=== PATIENT | male | born 1970 | race Caucasian/White ===

== ENCOUNTER 2023-07-20 11:26 | Emergency (ER) | payer BC, SELFPAY ==
[2023-07-20 11:27] VITALS: BP 154/98; PULSE 76; RESP 20; TEMP 36; O2SAT 98; BMI 28.5
--- NOTE | 2023-07-20 12:45 | CT_ITS ---
STUDY: CTA HEAD AND NECK WITH CONTRAST REASON FOR EXAM: Male, 52 years old. Two-week history of migraine headaches. RADIATION DOSAGE (If Supplied By Facility): CTDIvol = ( 26.30 ) mGy, DLP = ( 1670.72 ) mGycm TECHNIQUE: CT angiography was performed with a multi-detector CT scanner. Data acquisition was obtained from the skull base through the vertex following intravenous administration of IV 100mL [id number]-370. MIP images were reconstructed from the axial data set. Post-processing of the angiographic images was performed, with multiplanar reformation and 3D reconstruction. Individualized dose optimization techniques were used for this CT. COMPARISON: No relevant priors. FINDINGS: Normal bilateral petrous carotid arteries. Normal right cavernous carotid artery with a normal supraclinoid bifurcation. Normal left cavernous carotid artery with a normal supraclinoid bifurcation. Normal right A1 segments of the anterior cerebral artery. Normal left A1 segments of the anterior cerebral artery. Normal intact anterior communicating artery (ACOM). Normal bilateral A2 segments of the anterior cerebral arteries. Normal right M1 and M2 segments of the middle cerebral arteries, with a normal M1 bifurcation. Normal left M1 and M2 segments of the middle cerebral arteries, with a normal M1 bifurcation. Normal right posterior communicating artery (PCOM). Normal left posterior communicating artery (PCOM). Normal bilateral vertebral arteries. Normal basilar artery with a normal basilar bifurcation. The visualized bilateral superior cerebellar (SCA) arteries are normal. Normal bilateral P1, P2 and visualized P3 segments of the posterior cerebral arteries. There is no demonstrated aneurysm of the [place]. There is no demonstrated abnormality of the visualized brain. AORTIC ARCH: Normal visualized aortic arch. Normal origins of the brachiocephalic, left common carotid, and left subclavian arteries. RIGHT CAROTID ARTERIES: Normal right common carotid artery (CCA). Normal right common carotid bulb. Normal origin of the right internal carotid (ICA) artery without a hemodynamically significant stenosis. Normal visualized cervical portion of the right internal carotid artery. Normal origin of the right external carotid artery (ECA). LEFT CAROTID ARTERIES: Normal left common carotid artery (CCA). Normal left common carotid bulb. Minimal calcific plaque along the anterior aspect of the origin of the left internal carotid artery. Normal visualized cervical portion of the left internal carotid artery. Normal origin of the left external carotid artery (ECA). VERTEBRAL ARTERIES: Normal bilateral vertebral arteries. CT/CTA Head AND Neck W/ Contrast IMPRESSION: Normal CTA Head and neck with contrast. Electronically Signed: Esteban Donis MD at 13:55 EST ,
--- NOTE | 2023-07-20 12:53 | EDS_ITS ---
HPI History of Present Illness Chief Complaint: Headache Informant: patient and spouse/S.O. Narrative Narrative: 52-year-old male presenting to the emergency room with occipital headache. Patient states for the past 2 years he has had intermittent occipital headaches. He states typically wakes him up in the night has light sensitivity he takes Imitrex and gets better. He states that 4 or 5 times he is required the migraine cocktail at the emergency department. He states [address] he [address] a [address] of his head that did not show anything. He states 2 weeks ago he developed this headache in the Imitrex did not resolve the symptoms. He notes his occipital feels it is stemming mid cervical and up into the occipital region. He notes associated light sensitivity. He saw a nurse practitioner in his doctor's office who prescribed Fioricet and prednisone. He states this did not help. He did a virtual visit with his doctor who placed him on methocarbamol he states that this did not help. He states that when he moves his neck he feels a grinding popping like sensation. He notes pain is worse with flexion and with rotating to the right. He denies any arm or leg symptoms. No fever no rash. No speech difficulty. No ataxia/off-balance. He now notes a pain in the lower thoracic which is started in the past 2 weeks that is also worse with movement. No radicular symptoms. No bowel or bladder dysfunction. No known direct traumas. [facility] Medical History Migraine Home Medications oxycodone 10 mg tablet 10 mg PO TID PRN pain 3 days #12 tabs 07/20/23 [Rx Last Taken Unknown] sumatriptan succinate 50 mg tablet (Imitrex) See Rx Instructions PO .COMPLEX 07/20/23 [History Last Taken Unknown] Allergy/AdvReac Type Severity Reaction Status Date / Time No Known Allergies Allergy Verified 07/20/23 11:29 Social History Smoking Status: Current every day smoker tobacco type: cigarettes ROS ROS ED Constitutional Constitutional ED: Denies chills or weight loss Eyes Eyes: Reports other Details: Light sensitivity ; Denies blurry vision, change in vision or diplopia ENT ENT ED: Denies ear pain, rhinorrhea or sore throat Cardiovascular Cardiovascular: Denies chest pain, orthopnea, palpitations or racing heartbeat Respiratory/Chest Respiratory/Chest: Denies cough, dyspnea or orthopnea Gastrointestinal Gastrointestinal: Denies abdominal pain, diarrhea, nausea or vomiting Genitourinary Genitourinary ED: Denies dysuria, hematuria or urinary frequency Musculoskeletal Musculoskeletal: Reports back pain and neck pain; Denies arthralgias or myalgias Integumentary Denies abscess or rash Neurologic Neurologic: Reports headache(s); Denies weakness Psychiatric Psychiatric: Denies anxiety, depression, suicidal ideation or suicidal thoughts Endocrine Endocrinology: Denies polydipsia, polyphagia or polyuria Allergic/Immunologic Allergic/Immunologic ED: Denies mouth swelling, tongue swelling or urticaria EXAM Physical Exam Const Vital Signs: 07/20/23 11:27 07/20/23 15:09 Temperature 96.8 F L Temperature Source Temporal Pulse Rate 76 78 Respiratory Rate 20 H 16 Blood Pressure 154/98 H 124/71 H Blood Pressure Mean 116 88 Pulse Ox 98 100 Oxygen Delivery Method Room Air Positive well nourished and well developed General Appearance ED: well developed HEENT Reports normocephalic, head/scalp atraumatic and moist mucous membranes Eyes PERRL and EOMs intact bilaterally Neck no lymphadenopathy, supple, no meningeal signs and no JVD Resp normal respiratory effort and clear to auscultation bilaterally Cardio regular rate, regular rhythm and no murmurs GI normal to inspection, nondistended, normoactive bowel sounds and non-tender Palpation: soft Back/Spine no CVA tenderness and normal ROM Extremity normal to inspection General Extremety ED: Negative for edema General Extremity: Negative for edema Neuro oriented x3 and CN's II-XII intact bilaterally Sensorium / Orientation: alert Motor Exam: strength 5/5 throughout Psych mental status grossly normal Mood & Affect: Negative for depressed or tearful Skin no rashes or lesions noted and no wounds MDM MDM MDM Narrative Medical decision making narrative: Patient's white count 9.2 hemoglobin 16.7. Glucose 107. CTA head and neck demonstrates no aneurysm or mass skull lesions significant spinal stenosis obvious cause for the patient's pain. He received a dose of Toradol and some fluids as well as a dose of dexamethasone. At this point not sure that this is migrainous in nature though it could be. There is definitely a musculoskeletal component given the noises he makes with movement of his neck it is worse with flexion worse with rotation to the right. I do not think that this is infectious in etiology. Based on the CTA no aneurysm or dissection component. At this point already can write the patient pain medication. He has follow-up next week with his primary care doctor. We talked about scheduled anti- inflammatories. We talked about neurology follow-up. At this point patient will be discharged instructions to return for any worsening or concerning features. History & Record Review Discussion w/independent historian: Patient and Significant other Lab Data Attestation: I reviewed the patient's lab results. Labs: Laboratory Results - last 24 hr 07/20/23 13:15 WBC 9.2 RBC 5.31 Hgb 16.7 H Hct 49.6 MCV 93.4 MCH 31.5 MCHC 33.7 RDW Std Deviation 41.8 RDW Coeff of [place] 12.1 Plt Count 274 MPV 8.8 Immature Gran % (Auto) 0.400 Neut % (Auto) 57.0 Lymph % (Auto) 28.7 Nelson % (Auto) 9.7 Eos % (Auto) 3.7 Baso % (Auto) 0.5 Absolute Neuts (auto) 5.2 Absolute Lymphs (auto) 2.63 Nucleated RBC % 0 Sodium 137 Potassium 3.9 Chloride 103 Carbon Dioxide 30.0 Anion Gap 4 L BUN 18 Creatinine 0.96 Estim Creat Clear Calc 109.01 Est GFR (MDRD) Af Amer 106 Est GFR (MDRD) Non-Af 88 BUN/Creatinine Ratio 18.8 Glucose 107 H Calcium 10.3 H Radiography Diagnostic Testing: Clinical Impression(s) from Imaging Studies Head/Neck CTA 07/20/23 12:45 IMPRESSION: Normal CTA Head and neck with contrast. Electronically Signed: Esteban Donis MD at 13:55 EST , Discharge Plan Triage Chief Complaint: Headache ED Provider: Elmer Acuña Dx/Rx/DC Orders Clinical Impression: Acute neck pain, Headache Instructions: ED Headache Unspecified Prescriptions: New oxycodone 10 mg tablet 10 mg PO TID PRN (Reason: pain) 3 Days Qty: 12 0RF No Action sumatriptan succinate [Imitrex] 50 mg tablet See Rx Instructions .ROUTE .COMPLEX Rx Instructions: take 1 tab at onset of headache; if no relief may repeat 1 tab after at least 2 hrs; max = 4 tabs/24 hr Primary Care Provider: Girish Lanier Referrals: Girish Lanier DO [Primary Care Provider] - Keep Charlie appointment Activity Restrictions/Additional Instructions: As discussed there are several neurology groups up in [place]. You can call [facility] or [facility] and be connected to their neurology groups. There is also the neurology group below. [place] [id number], [address] [place], [place] [address] Disposition Disposition: Home, Self Care Discharge Date/Time: 07/20/23 15:24
--- OUTSIDE RECORDS SUMMARY | 2023-07-20 12:57 | XMS RPT_ITS | CCD ---
Author Name Unknown Address [address] [place] [address] Organization [facility] Care Team Providers Care Internet Assessor Name Role Phone NHUNG BE Primary Care Physician DR RONEL CORBETT DO Primary Care Physician [phone] DR RONEL CORBETT DO Primary Care Unavailable DR JUAN TRISTAN DO Attending Unavailable Medications Current Medications Medication Drug Class(es) Dates Sig (Normalized) Sig (Original) acetaminophen 325 mg / butalbital 50 mg / caffeine 40 mg oral tablet (2 sources) Barbiturate, Central Nervous System Stimulant, Methylxanthine Start: 04-09-2021 End: 04-12-2021 take 1 tablet by mouth every four hours as needed APAP/butalbital/ caffeine 325-50-40 mg oral tablet (Fioricet) Dose = 1 tab(s), Oral, q4h, PRN as needed, X 3 day(s), # 18 tab(s), 0 Refill(s) Start Date: 04/09/21 Stop Date: 04/12/21 Status: Ordered Completed/Discontinued Medications Medication Drug Class(es) Dates Sig (Normalized) Sig (Original) meloxicam 15 mg oral tablet (2 sources) Nonsteroidal Anti-inflammatory Drug Start: 06-03-2021 End: 07-03-2021 meloxicam 15 mg oral tablet Dose : 15 mg = 1 tab(s), Oral, qDay, PRN Pain, Take with food and plenty of fluids. Do not take any other NSAIDs while on this medication., # 30 tab(s), 0 Refill(s), Pharmacy: [facility]/pharmacy #[id number], 187, cm, 06/03/21 8:46:00 EST, Height, kg, 06/03/21 8:4... Start Date: 06/03/21 Stop Date: 07/03/21 Status: Ordered SUMAtriptan 100 mg oral tablet (5 sources) Serotonin-1b and Serotonin-1d Receptor Agonist Start: 12-15-2021 End: 04-26-2022 take 1 tablet by mouth every twenty-four hours SUMAtriptan 100 mg oral tablet Dose : 100 mg = 1 tab(s), Oral, qDay, PRN as needed for migraine headache, may repeat dose after 2 hours up to a maximum of 200 mg in 24 hours, # 9 tab(s), 2 Refill(s), Pharmacy: [facility]/pharmacy #[id number], 198, cm, 01/06/22 15:21:00 EDT, Height, kg, 01/06/22... Start Date: 01/26/22 Stop Date: 04/26/22 Status: Ordered Problems Problem Classification Problem Date Documented Date Episodic/Chronic Abdominal pain (3 sources) Right inguinal pain 06-03-2021 Episodic Diabetes mellitus without complication (1 source) Hyperglycemia 01-06-2022 Episodic Headache; including migraine (4 sources) Migraine 04-22-2021 Chronic Nonspecific chest pain (1 source) Chest pain; Translations: [Chest pain, unspecified] Onset: 06-28-2022 Episodic Residual codes; unclassified (4 sources) Current drinker 04-22-2021 Episodic Results Test Name Value Interpretation Reference Range Facil ity Vital Signs Date Time Vital Sign Value Performing Clinician Faci lity 06-28-2022 08:18-0500 Diastolic Blood Pressure Non-Invasive 102 1 DOMENICO CANTRELL MD [facility] 06-28-2022 08:18-0500 Heart rate 85 /min DOMENICO CANTRELL MD [facility] 06-28-2022 08:18-0500 Respiratory rate 20 /min DOMENICO CANTRELL MD [facility] 06-28-2022 08:18-0500 Systolic Blood Pressure Non-Invasive 148 1 DOMENICO CANTRELL MD [facility] 06-28-2022 07:53-0500 Diastolic Blood Pressure Non-Invasive 104 1 DOMENICO CANTRELL MD [facility] 06-28-2022 07:53-0500 Heart rate 88 /min DOMENICO CANTRELL MD [facility] 06-28-2022 07:53-0500 Respiratory rate 14 /min DOMENICO CANTRELL MD [facility] 06-28-2022 07:53-0500 Systolic Blood Pressure Non-Invasive 147 1 DOMENICO CANTRELL MD [facility] 06-28-2022 07:30-0500 Diastolic Blood Pressure Non-Invasive 106 1 DOMENICO CANTRELL MD [facility] 06-28-2022 07:30-0500 Heart rate 80 /min DOMENICO CANTRELL MD [facility] 06-28-2022 07:30-0500 Respiratory rate 17 /min DOMENICO CANTRELL MD [facility] 06-28-2022 07:30-0500 Systolic Blood Pressure Non-Invasive 148 1 DOMENICO CANTRELL MD [facility] 06-28-2022 06:44-0500 Blood Pressure Location DOMENICO CANTRELL MD [facility] 06-28-2022 06:44-0500 Body height 182.9 cm DOMENICO CANTRELL MD [facility] 06-28-2022 06:44-0500 Body temperature 98.96 [degF] DOMENICO CANTRELL MD [facility] 06-28-2022 06:44-0500 Body weight 100 kg DOMENICO CANTRELL MD [facility] 06-28-2022 06:44-0500 Heart rate 93 /min DOMENICO CANTRELL MD [facility] 09-04-2021 10:09-0400 Diastolic blood pressure 93 mm[Hg] KRYS DURESKA DO [facility] 09-04-2021 10:09-0400 Heart rate 79 /min KRYS DURESKA DO [facility] 09-04-2021 10:09-0400 Respiratory rate 18 /min KRYS DURESKA DO [facility] 09-04-2021 10:09-0400 Systolic blood pressure 157 mm[Hg] KRYS DURESKA DO [facility] 09-04-2021 07:29-0400 Body temperature 97.7 [degF] KRYS DURESKA DO [facility] 09-04-2021 07:29-0400 Diastolic blood pressure 107 mm[Hg] KRYS DURESKA DO [facility] 09-04-2021 07:29-0400 Heart rate 81 /min KRYS DURESKA DO [facility] 09-04-2021 07:29-0400 Respiratory rate 18 /min KRYS FERNANDEZ DO [facility] 09-04-2021 07:29-0400 Systolic blood pressure 172 mm[Hg] KRYS FERNANDEZ DO [facility] 04-09-2021 04:52-0400 Diastolic blood pressure 92 mm[Hg] DR AZAEL GARDUNO MD [facility] 04-09-2021 04:52-0400 Heart rate 76 /min DR AZAEL GARDUNO MD [facility] 04-09-2021 04:52-0400 Respiratory rate 18 /min DR AZAEL GARDUNO MD [facility] 04-09-2021 04:52-0400 Systolic blood pressure 136 mm[Hg] DR ZAAEL GARDUNO MD [facility] 04-09-2021 03:22-0400 Body temperature 98.42 [degF] DR AZAEL GARDUNO MD [facility] 04-09-2021 03:22-0400 Body weight [address] AZAEL GARDUNO MD [facility] 04-09-2021 03:22-0400 Diastolic blood pressure 100 mm[Hg] DR AZAEL GARDUNO MD [facility] 04-09-2021 03:22-0400 Heart rate 72 /min DR AZAEL GARDUNO MD [facility] 04-09-2021 03:22-0400 Respiratory rate 18 /min DR AZAEL GARDUNO MD [facility] 04-09-2021 03:22-0400 Systolic blood pressure 167 mm[Hg] DR AZAEL GARDUNO MD [facility] Encounters Encounter Date Encounter Type Care Provider Facility Start: 07-09-2023 End: 07-09-2023 Emergency department patient visit DR RONEL CORBETT DO Facility:[facility] Start: 06-28-2022 End: 06-28-2022 Emergency department patient visit DOMENICO CANTRELL MD [facility] Start: 09-04-2021 End: 09-04-2021 Emergency department patient visit KRYS REBECCA SMYTH [facility] Start: 06-03-2021 End: 06-03-[address] RONEL CORBETT DO [facility] Start: 04-22-2021 End: 04-22-[address] RONEL CORBETT DO [facility] Start: 04-09-2021 End: 04-09-2021 Emergency department patient visit DR AZAEL GARDUNO MD [facility] Procedures Date Procedure Procedure Detail Performing Clinician Start: 06-25-2011 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 Payers Date Payer Category Payer Unknown [id number] 1970 Unknown [id number] Social History Date Type Detail Facility Start: 10-30-2020 Heavy tobacco smoker (finding) [facility] Sex [facility]igned At [facility] Functional Status Date Assessment Result Facility 06-28-2022 Functional Status Up ad bre[facility] Mental Status Date Assessment Result Facility 06-28-2022 Mental Status Orientation Oriented x 4 [facility] 06-28-2022 Mental Status [facility] Clinical Notes 04-09-2021 to 06-28-2022 RadiologyLaboratory Note Date & Type Note Facility 06-28-2022 Hospital Discharge instructions Patient Education 06/28/2022 08:06:46 Chest Pain, Uncertain Cause Uncertain Causes of Chest Pain Chest pain can happen for a number of reasons. Sometimes the cause can't be determined. If your condition does not seem serious, and your pain does not appear to be coming from your heart, your healthcare provider may recommend watching it closely. Sometimes the signs of a serious problem take more time to appear. Many problems not related to your heart can cause chest pain. These include: Musculoskeletal. Costochondritis is an inflammation of the tissues around the ribs that can occur from trauma or overuse injuries, or a strain of the muscles of the chest wall Respiratory. Pneumonia, collapsed lung (pneumothorax), or inflammation of the lining of the chest and lungs (pleurisy) Gastrointestinal. Esophageal reflux, heartburn, ulcers, or gallbladder disease Anxiety and panic disorders Nerve compression and inflammation Rare miscellaneous problems such as aortic aneurysm (a swelling of the large artery coming out of the heart) or pulmonary embolism (a blood clot in the lungs) Home care After your visit, follow these recommendations: Rest today and avoid strenuous activity. Take any prescribed medicine as directed. Be aware of any recurrent chest pain and notice any changes Follow-up care Follow up with your healthcare provider if you do not start to feel better within 24 hours, or as advised. Call 911 Call 911 if any of these occur: A change in the type of pain: if it feels different, becomes more severe, lasts longer, or begins to spread into your shoulder, arm, neck, jaw or back Shortness of breath or increased pain with breathing Weakness, dizziness, or fainting Rapid heart beat Crushing sensation in your chest When to seek medical advice Call your healthcare provider right away if any of the following occur: Cough with dark colored sputum (phlegm) or blood Fever of 100.4 F (38 C) or higher, or as directed by your healthcare provider Swelling, pain or redness in one leg [phone] [employer]. [address] [place] [address]. All rights reserved. This information is not intended as a substitute for professional medical care. Always follow your healthcare professional's instructions. Follow Up Care 06/28/2022 06:34:03 With:RONEL CORBETT DO Address: [address] [place] [phone] When:2-4 days [facility] 06-28-2022 Note Discharge Instructions Thank you for allowing [facility] to assist you with your healthcare needs. The following is important discharge information regarding your hospital visit. Diagnosis from Today's Visit Chest pain Chest pain What to Do Next Instructions from Your Care Team No qualifying data available. Post Acute Orders No qualifying data available. You Need to Schedule the Following Appointments Follow Up with RONEL CORBETT DO When Within 2-4 days Where: [address] [place] [id number] [phone] Allergies NKA Medications Please ask your primary doctor or pharmacist before taking any other medication not listed, including over the counter drugs, herbal medications, vitamins and or supplements as they may interact with your home medications. What How Much When Instructions Last Dose Unchanged cetirizine (Zyrtec 10 mg oral tablet) 1 tab(s) by mouth Once a day Unchanged fluticasone nasal (Flonase 50 mcg/ inh nasal spray) Once a day Unchanged SUMAtriptan (SUMAtriptan 100 mg oral tablet) 1 tab(s) by mouth Once a day as needed for as needed for migraine headache Duration: 30 Days may repeat dose after 2 hours up to a maximum of 200 mg in 24 hours Unchanged SUMAtriptan (SUMAtriptan 100 mg oral tablet) 1 tab(s) by mouth Once a day as needed for for migraine headache. 1 tab onset , may repeat in 2 hrs. MAX 2 tab(s)/ 24hrs Please take this list to your next doctor s visit. Bring all medications you take, including over the counter medications, herbals and other supplements with you to your doctor s visit. Patients and families are reminded to discard old lists and to update any records with all medication providers or retail pharmacies. Education Materials Uncertain Causes of Chest Pain Chest pain can happen for a number of reasons. Sometimes the cause can't be determined. If your condition does not seem serious, and your pain does not appear to be coming from your heart, your healthcare provider may recommend watching it closely. Sometimes the signs of a serious problem take more time to appear. Many problems not related to your heart can cause chest pain. These include: Musculoskeletal. Costochondritis is an inflammation of the tissues around the ribs that can occur from trauma or overuse injuries, or a strain of the muscles of the chest wall Respiratory. Pneumonia, collapsed lung (pneumothorax), or inflammation of the lining of the chest and lungs (pleurisy) Gastrointestinal. Esophageal reflux, heartburn, ulcers, or gallbladder disease Anxiety and panic disorders Nerve compression and inflammation Rare miscellaneous problems such as aortic aneurysm (a swelling of the large artery coming out of the heart) or pulmonary embolism (a blood clot in the lungs) Home care After your visit, follow these recommendations: Rest today and avoid strenuous activity. Take any prescribed medicine as directed. Be aware of any recurrent chest pain and notice any changes Follow-up care Follow up with your healthcare provider if you do not start to feel better within 24 hours, or as advised. Call 911 Call 911 if any of these occur: A change in the type of pain: if it feels different, becomes more severe, lasts longer, or begins to spread into your shoulder, arm, neck, jaw or back Shortness of breath or increased pain with breathing Weakness, dizziness, or fainting Rapid heart beat Crushing sensation in your chest When to seek medical advice Call your healthcare provider right away if any of the following occur: Cough with dark colored sputum (phlegm) or blood Fever of 100.4 F (38 C) or higher, or as directed by your healthcare provider Swelling, pain or redness in one leg [phone] [employer]. [address] [place] [address]. All rights reserved. This information is not intended as a substitute for professional medical care. Always follow your healthcare professional's instructions. Additional Information VACCINATE! IT SAVES LIVES! Members of the community who have not yet received the COVID-19 vaccine and would like to receive it can visit one of [facility] vaccine clinics. There are many vaccine clinic locations within the [facility]. For locations and available times, please visit [email or web address]. It is important to note that some COVID mobile vaccine clinics are held outdoors and may be canceled in rainy or stormy conditions. To learn more about pediatric vaccinations (ages 5-11), we invite you to visit the [facility] webpage. [email or web address] To learn more about the COVID-19 vaccine, we invite you to visit the [facility] website for a list of frequently asked questions. [email or web address] [facility] Patient Portal Access Instructions: Stay connected with your healthcare team and access your personal medical information anytime with the [facility] Patient Portal. If you would like a full copy of your medical records please contact the [facility] Medical Records Department Sunday through Sunday between 8a.m. and 4:30p.m. Please follow the directions below to access the portal: 1.Access the email account you provided upon registration to the [facility].2.Look for an invitation email from [facility].3.Open the email and access the invitation link: Accept Invitation to [employer]4.Fill in the required zuñiga to create your account. Sign into [email or web address] with your username and password that you created in the above steps to stay up to date. You can then view a summary of results, a summary of your visits, and the ability to download your summaries to your computer or send the information securely to a physician. Remember that your healthcare information is confidential, so carefully consider who you will allow to register on the [facility] Patient Portal for access to your information. You can also access the [employer] Patient Portal on the [employer]. Simply click on Health Records under Health Data and then click on the [facility] logo. HOW TO SAFELY DISPOSE OF PRESCRIPTION MEDICATIONS Please use one of the following methods to safely dispose of your unused medications. 1.Use a drug disposal kit: the drug disposal pouch allows you to safely discard your old and unused drugs. Ask your nurse to give you one when you are discharged.2.Visit a local take-back location: Many local pharmacies and police departments have programs that collect old and unwanted prescription drugs. Call your local pharmacy or go to http://Addictive.[employer]/2R8Kp4g to find one close to you.3.Make use of household items: Use cat litter or old coffee grounds to dispose medications if other options are not available. Mix your drugs with these household products, seal them in an airtight container and throw it into the garbage. Call [facility]: [phone] to be sure your drugs can be disposed of in this way. Some medicines may require a different approach.4.Never flush your medications down the toilet. IF YOU HAVE BEEN PRESCRIBED AN OPIOIDS FOR PAIN If you have been prescribed an opioid (such as hydrocodone, oxycodone or morphine), it is critical to understand the possible side effects and risks of opioid pain medications. Even when taken as directed, opioids can have several side effects including: Tolerance, meaning you might need to take more of a medication for the same pain relief. Nausea, vomiting and/or constipation. Sleepiness, dizziness, dry mouth, confusion, depression or itching. Physical dependence, meaning you have withdrawal symptoms when a medication is stopped ? this can develop within a few days. KNOW YOUR RESPONSIBILITIES It is important to know exactly how much and how often to take the opioid pain medications you are prescribed. Never take opioids in higher amounts or more often than prescribed. Do not combine opioids with alcohol or other drugs that cause drowsiness, such as benzodiazepines, also known as benzos, including diazepam and alprazolam, muscle relaxants or sleep aids. Never sell or share prescription opioids. This is illegal. Store opioids in a secure place and out of reach of others (including children, family, friends and visitors). The last page(s) of this document has been signed and retained as a CHART COPY Signatures Patient Education Materials Chest Pain, Uncertain Cause Medication Leaflets My discharge plan and instructions have been reviewed and explained to me and IJEN JASON O understand my current condition and have read and understand these discharge instructions. I have received a written copy of the plan/instructions. If I have questions, I am aware that I should contact my doctor. 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 No consolidation, pleural effusion, or vascular congestion is seen. The osseous structures are intact. IMPRESSION: No acute findings. RECOMMENDATIONS: Unavailable Interpreted by: Heron Monroe MD Preliminary Report By: Heron Monroe MD Electronically signed By Heron Monroe MD Dictated Date: 06/28/2022 7:50:10 AM Prelim Date: 06/28/2022 7:51:21 AM Sign Date: 06/28/2022 7:51:21 AM Ordering Provider: DOMENICO [facility] 06-28-2022 Note ORIGINAL EXAMINATION: ONE XRAY VIEW OF THE CHEST06/28/2022 7:40 am CHEST ONE VIEW AP/PA COMPARISON: None HISTORY: ORDERING SYSTEM PROVIDED HISTORY: Reason for Exam: chest pain FINDINGS: The cardiomediastinal silhouette is normal in appearance. No consolidation, pleural effusion, or vascular congestion is seen. The osseous structures are intact. IMPRESSION: No acute findings. RECOMMENDATIONS: Unavailable Interpreted by: Heron Monroe MD Preliminary Report By: Heron Monroe MD Electronically signed By Heron Monroe MD Dictated Date: 06/28/2022 7:50:10 AM Prelim Date: 06/28/2022 7:51:21 AM Sign Date: 06/28/2022 7:51:21 AM Ordering Provider: DOMENICO [facility] 09-04-2021 Hospital Discharge instructions Patient Education 09/04/2021 10:10:04 Hypertension, To Be Confirmed High Blood Pressure, To Be Confirmed, No Treatment Your blood pressure today was higher than normal. Sometimes anxiety or pain can cause a temporary rise in blood pressure. It later returns to normal. Blood pressure that is high only one time doesn t mean that you have high blood pressure (hypertension). High blood pressure is a chronic illness. But you should have your blood pressure measured again within the next few days to find out if it s still high. Blood pressure measurements are given as 2 numbers. Systolic blood pressure is the upper number. This is the pressure when the heart contracts. Diastolic blood pressure is the lower number. This is the pressure when the heart relaxes between beats. You will see your blood pressure readings written together. For example, a person with a systolic pressure of 118 and a diastolic pressure of 78 will have 118/78 written in the medical record. Blood pressure is categorized as normal, elevated, or stage 1 or stage 2 high blood pressure: Normal blood pressure is systolic of less than 120 and diastolic of less than 80 (120/80) Elevated blood pressure is systolic of 120 to 129 and diastolic less than 80 Stage 1 high blood pressure is systolic is 130 to 139 or diastolic between 80 to 89 Stage 2 high blood pressure is when systolic is 140 or higher or the diastolic is 90 or higher Lifestyle changes such as weight loss, exercise, and quitting smoking, can help manage your blood pressure. Have your blood pressure checked regularly to be sure it is under control. Home care To track your blood pressure, your provider may ask you to come into the office at different times and on different days. If your healthcare provider asks you to check your readings at home, ask him or her what times of the day to test and for how many days. Before you leave the office, ask your provider to show you how to take your blood pressure and be sure to ask questions if you don't understand something. Consider buying an automatic blood pressure monitor. Ask your provider for a recommendation as well as the proper size cuff to fit your arm. You can buy blood pressure monitors at most pharmacies. The [employer] recommends the following guidelines for home blood pressure monitoring: Don't smoke or drink coffee or other caffeinated drinks for 30 minutes before taking your blood pressure. Go to the bathroom before the test. Relax for 5 minutes before taking the measurement. Sit with your back supported (don't sit on a couch or soft chair); keep your feet on the floor uncrossed. Place your arm on a solid flat surface (like a table) with the upper part of the arm at heart level. Place the middle of the cuff directly above the bend of the elbow. Check the monitor's instruction manual for an illustration. Take multiple readings. When you measure, take 2 to 3 readings one minute apart and record all of the results. Take your blood pressure at the same time every day, or as your healthcare provider recommends. Record the date, time, and blood pressure reading. Take the record with you to your next medical appointment. If your blood pressure monitor has a built-in memory, simply take the monitor with you to your next appointment. Call your provider if you have several high readings. Don't be frightened by a single high blood pressure reading, but if you get several high readings, check in with your healthcare provider. Note: When blood pressure reaches a systolic (top number) of 180 or higher OR diastolic (bottom number) of 110 or higher, seek emergency medical treatment. Follow-up care Keep all of your follow up appointments. If your blood pressure is more than 120 over 80 on 2 out of 3 days, you will need to follow up with your healthcare provider for more evaluation and treatment. Don t put this off! High blood pressure can be treated. High blood pressure that s not treated raises your risk for heart attack, heart failure, and stroke. When to seek medical advice Call your healthcare provider right away if any of these occur: Blood pressure reaches a systolic (top number) of 180 or higher, OR diastolic (bottom number) of 110 or higher Chest pain or shortness of breath Severe headache Throbbing or rushing sound in the ears Nosebleed Sudden severe pain in your belly (abdomen) Extreme drowsiness, confusion, or fainting Dizziness or dizziness with spinning sensation (vertigo) Weakness of an arm or leg or one side of the face You have problems speaking or seeing [id number] [employer] [place] [address]. All rights reserved. This information is not intended as a substitute for professional medical care. Always follow your healthcare professional's instructions. 09/04/2021 10:09:56 Headache, Unspecified Headache, Unspecified A number of things can cause headaches. The cause of your headache isn t clear. But it doesn t seem to be a sign of any serious illness. Headache affects almost everyone at some time. It is the most common reason people miss days from work or school. You could have a tension headache or a migraine headache. Stress can cause a tension headache. This can happen if you tense the muscles of your shoulders, neck, and scalp without knowing it. If this stress lasts long enough, you may develop a tension headache. It is not clear why migraines occur, but certain things called triggers can raise the risk of having a migraine attack. Migraine triggers may include emotional stress or depression, or by hormone changes during the menstrual cycle. Other triggers include control pills and other medicines, alcohol or caffeine, foods with tyramine (such as aged cheese, wine), eyestrain, weather changes, missed meals, and lack of sleep or oversleeping. Other causes of headache include: Viral illness with high fever Head injury with concussion Sinus, ear, or throat infection Dental pain and jaw joint (TMJ) pain More serious but less common causes of headache include stroke, brain hemorrhage, brain tumor, meningitis, and encephalitis. Home care Follow these tips when taking care of yourself at home: Don t drive yourself home if you were given pain medicine for your headache. Instead, have someone else drive you home. Try to sleep when you get home. You should feel much better when you wake up. Apply heat to the back of your neck to ease a neck muscle spasm. Take care of a migraine headache by putting an ice pack on your forehead or at the base of your skull. If you have nausea or vomiting, eat a light diet until your headache eases. If you have a migraine headache, use sunglasses when in the daylight or around bright indoor lighting until your symptoms get better. Bright glaring light can make this type of headache worse. Follow-up care Follow up with your healthcare provider, or as advised. Talk with your provider if you have frequent headaches. He or she can help figure out a treatment plan. By knowing the earliest signs of headache, and starting treatment right away, you may be able to stop the pain yourself. When to seek medical advice Call your healthcare provider right away if any of these occur: Your head pain suddenly gets worse after sexual intercourse or strenuous activity Your head pain doesn t get better within 24 hours You aren t able to keep liquids down (repeated vomiting) Fever of 100.4 F (38 C) or higher, or as directed by your healthcare provider Stiff neck Extreme drowsiness, confusion, or fainting Dizziness or dizziness with spinning sensation (vertigo) Weakness in an arm or leg or one side of your face You have trouble talking or seeing [id number] [employer]. [address] [place] [address]. All rights reserved. This information is not intended as a substitute for professional medical care. Always follow your healthcare professional's instructions. Follow Up Care 09/04/2021 07:25:22 With:RONEL CORBETT DO Address: [address] [place] [phone] When:2-4 days [facility] 06-03-2021 Evaluation + Plan note Future Scheduled TestsXR Hip Minimum 2 Views Right 06/03/21 [facility] 04-09-2021 Hospital Discharge instructions Patient Education 04/09/2021 04:20:34 Headache, Migraine, Classic Migraine Headache This often severe type of headache is different from other types of headaches in that symptoms other than pain occur with the headache. Nausea and vomiting, lightheadedness, sensitivity to light (photophobia), and other visual disturbances are common migraine symptoms. The pain may last from a few hours to several days. It is not clear why migraines occur but certain factors called triggers can raise the risk of having a migraine attack. A migraine may be triggered by emotional stress or depression, or by hormone changes during the menstrual cycle. Other triggers include control pills, overuse of migraine medicines, alcohol or caffeine, foods with tyramine (such as aged cheese and wine), eyestrain, weather changes, missed meals, or too little or too much sleep. Home care Follow these tips when taking care of yourself at home: Don t drive yourself home if you were given pain medicine for your headache or are having visual symptoms. Instead, have someone else drive you home. Try to sleep when you get home. You should feel much better when you wake up. Cold can help ease migraine symptoms. Put an ice pack on your forehead or at the base of your skull. Put heat on the back of your neck to help ease any neck spasm. Drink only clear liquids or eat a light diet until your symptoms get better. This will help you avoid nausea and vomiting. How to prevent migraines Pay attention to what seems to trigger your headache. Try to avoid the triggers when you can. If you have frequent headaches, consider keeping a headache diary. In it, write down what you were doing, feeling, or eating in the hours before each headache. Show this to your healthcare provider to help find the cause of your headaches. If stress seems to be a trigger for your headaches, figure out what is causing stress in your life. Learn new ways to handle your stress. Ideas include regular exercise, biofeedback, self-hypnosis, yoga, and meditation. Talk with your healthcare provider to find out more information about managing stress. Many books and digital media are also available on this subject. Tyramine is a substance found in many foods. It can trigger a migraine in some people. These foods contain tyramine: Chocolate Yogurt All cheeses, but especially aged cheeses Smoked or pickled fish and meat, including salazar, caviar, bologna, pepperoni, and salami Liver Avocados Bananas Figs Raisins Red wine Try staying away from these foods for 1 to 2 months to see if you have fewer headaches. How to treat future headaches Take time out at the first sign of a headache, if possible. Find a quiet, dark, comfortable place to sit or lie down. Let yourself relax or sleep. Put an ice pack on your forehead or on the area of greatest pain. A heating pad and massage may help if you are having a muscle spasm and tightness in your neck. If you have been prescribed a medicine to stop a migraine headache, use this at the first warning sign of the headache for best results. First signs may be an aura or pain. If you need to take medicine often for your migraine, talk with your healthcare provider about other ways to prevent your headaches. Follow-up care Follow up with your healthcare provider, or as advised. Talk with your provider if you have frequent headaches. He or she can figure out a treatment plan. Ask if you can have medicine to take at home the next time you get a bad headache. This may keep you from having to visit the emergency department in the future. You may need to see a headache specialist (neurologist) if you continue to have headaches. When to seek medical advice Call your healthcare provider right away if any of these occur: Your head pain gets worse, or doesn t get better within 24 hours You can t keep liquids down (repeated vomiting) Pain in your sinuses, ears, or throat Fever of 100.4 F (38 C) or higher, or as directed by your healthcare provider Stiff neck Extreme drowsiness, confusion, or fainting Dizziness, or dizziness with spinning sensation (vertigo) Weakness in an arm or leg, or on one side of your face Difficulty talking or seeing [id number] [employer]. [address] [place] [address], [place] [address]. All rights reserved. This information is not intended as a substitute for professional medical care. Always follow your healthcare professional's instructions. Follow Up Care 04/09/2021 03:18:21 With:SAVANA CRUZ MD, Neurology Service Address: [phone] When:2-4 days Comments:[id number] [place] [id number] [facility] Evaluation + Plan note No data available for this section [facility] Evaluation + Plan note Future Appointments Appointment Date:06/03/2021 09:00:00 AM Scheduled Provider:RONEL CORBETT DO Location:[facility] Appointment Type:PC OV Follow Up [facility] Evaluation + Plan note Future Appointments Appointment Date:07/11/2022 03:30:00 PM Scheduled Provider:RONEL CORBETT DO Location:[facility] Appointment Type:PC OV Follow Up Future Scheduled TestsLipid Profile 01/06/22Complete Metabolic Panel 01/06/22 [facility] Hospital Discharge instructions No data available for this section [facility] Summary Purpose Family History No Family History Records Found Advance Directives No Advanced Directives Records Found Additional Source Comments Care Team (unrecognized sect ion and content) Care Team Personnel Name: RONEL CORBETT DO Position: P4 Physician - Primary Care Member Role: Primary Care Physician Address: Address: [address] [place] [address] [facility] [place], [place] [address] Care Team Related Persons Name: KAITLIN LI Address: [address] [phone] (unrecognized sect ion and content) No Status Records Found INFORMATION SOURCE (unrecogn ized section and content) FOR RECORDS PERTAINING TO PATIENTS WHO ARE OR HAVE BEEN ENROLLED IN A CHEMICAL DEPENDENCY/SUBSTANCEABUSE PROGRAM, SOME INFORMATION MAY BE OMITTED. This clinical summary was aggregated from multiple sources. Caution should be exercised in using it in the provision of clinical care. This summary normalizes information from multiple sources, and as a consequence, information in this document may materially change the coding, format and clinical context of patient data. In addition, data may be omitted in some cases. CLINICAL DECISIONS SHOULD BE BASED ON THE PRIMARY CLINICAL RECORDS. [employer] [facility]. provides no warranty or guarantee of the accuracy or completeness of information in this document.
[2023-07-20 13:29] LABS: Absolute Lymphocyte Count 2.63 X10^3/uL (0.83-4.51); Absolute Neutrophil Count 5.2 X10^3/uL (2.0-7.7); Basophil# 0.05 X10^3/uL; Basophil% 0.5 % (0-1); Eosinophil# 0.34 X10^3/uL; Eosinophils% 3.7 % (0-5); Hematocrit 49.6 % (40-54); Hemoglobin 16.7 g/dL (13.0-16.5); Lymphocyte # 2.63 X10^3/ul (0.83-4.51); Lymphocyte % 28.7 % (19-41); Mean Corp Hgb Conc 33.7 g/dL (32-36); Mean Corpuscular Hgb 31.5 pg (27.0-32.0); Mean Corpuscular Volume 93.4 fL (80-94); Mean Platelet Vol. 8.8 fl (6.2-12.0); Monocyte# 0.89 X10^3/uL; Monocyte% 9.7 % (0-10); NRBC Flagged by Analyzer 0 % (0-5); Neutrophil # 5.21 X10^3/uL (2.7-7.7); Platelet Count 274 K/mm3 (150-450); RBC Distribution Width CV 12.1 % (11.6-14.6); RBC Distribution Width SD 41.8 fl (35.1-43.9); Red Blood Count 5.31 M/mm3 (4.6-6.2); White Blood Count 9.2 K/mm3 (4.4-11.0)
[2023-07-20 13:46] LABS: Anion Gap 4 (5-15); BUN 18 mg/dL (7-18); BUN/Creat Ratio 18.8 RATIO (10-20); Calcium,Total 10.3 mg/dL (8.5-10.1); Chloride 103 mmol/L (98-107); Creatinine, Serum 0.96 mg/dL (0.70-1.30); EST Glomerular Filtration Rate 88 mL/min (>60); Est Glom Filt Rate - Afr Amer 106 mL/min (>60); Estimated Creatinine Clearance 109.01 ml/min; Glucose 107 mg/dL (74-106); Potassium 3.9 mmol/L (3.5-5.1); Sodium Level 137 mmol/L (136-145)
[2023-07-20] MEDS: dexAMETHasone 4 MG/ML Vial IV (13:52)
[2023-07-20] MEDS: Ketorolac 30 MG/ML Syringe IV (13:52)
[2023-07-20 15:09] VITALS: BP 124/71; PULSE 78; RESP 16; O2SAT 100
== END 2023-07-20 15:24 | disposition home or self-care (01) ==
PROVIDERS: Emergency Provider Emergency Medicine; PCP Student in an Organized Health Care Education/Training Program; Visit Provider Emergency Medicine
DX: M54.2 Cervicalgia (principal); R51.9 Headache, unspecified; M54.9 Dorsalgia, unspecified; F17.210 Nicotine dependence, cigarettes, uncomplicated
CPT/HCPCS: 70496; 70498; 80048; 85025; 96374; 96375; 99283; Q9967; A4216